=== PATIENT | female | born 1975 | race Caucasian/White ===

== ENCOUNTER 2017-06-02 19:37 | Inpatient (IN) | payer MEDICAID, OTHER ==
--- NOTE | 2017-06-02 20:36 | EDM.PDOC ---
ED HPI GENERAL MEDICAL PROBLEM - General Chief Complaint: Abdominal Pain Stated Complaint: MEDICAL Time Seen by Provider: 06/02/17 20:20 Source of Information: Reports: Patient, Old Records History Limitations: Reports: No Limitations - History of Present Illness INITIAL COMMENTS - FREE TEXT/NARRATIVE: 42 yo female from the [facility] was sent from there via EMS to be seen and admitted by Dr. Child for possible intussusception. Had Naida-N-Y gastric bypass by Dr. Child about 15 yrs ago. Began with abdominal pain about 0400h today. Pain has progressed. Some hematemesis. Has had a CT scan today. Onset: Today Onset Date: 06/02/17 Onset Time: 04:00 Duration: Hour(s):, Getting Worse Location: Reports: Abdomen Quality: Reports: Ache Severity: Moderate Improves with: Reports: None Worsens with: Reports: Other (time) Context: Reports: Other (Hx of gastric bypass) Associated Symptoms: Reports: Loss of Appetite, Nausea/Vomiting. Denies: Fever/ Chills Treatments STAND UP FORKLIFT OPERATOR: Reports: IV/IO, Other Medication(s) (narcotics) Right Upper Abdomen Pain Score (Numeric/FACES): 4 - Related Data Allergies Allergy/AdvReac Type Severity Reaction Status Date / Time prochlorperazine Allergy Agitation Verified 06/02/17 19:38 [From Compazine] Past Medical History REHAB THERAPY MANAGER History: Reports: Other (See Below) Other OB/BYN History: chronic infertility Musculoskeletal History: Reports: RA - Past Surgical History GI Surgical History: Reports: Cholecystectomy, Colonoscopy, Hernia Repair/Other , Other (See Below) Other GI Surgeries/Procedures: gastric bypass 15-20 years ago Endocrine Surgical History: Reports: Other (See Below) Other Endocrine Surgeries/Procedures: adeniodectomy Social & Family History - Tobacco Use Smoking Status *Q: Never Smoker - Caffeine Use Caffeine Use: Reports: Coffee, Soda - Recreational Drug Use Recreational Drug Use: No ED ROS GENERAL - Review of Systems Review Of Systems: See Below Constitutional: Reports: Decreased Appetite HEENT: Reports: No Symptoms Respiratory: Reports: No Symptoms Cardiovascular: Reports: No Symptoms Endocrine: Reports: No Symptoms GI/Abdominal: Reports: Abdominal Pain, Anorexia, Decreased Appetite, Hematemesis , Nausea, Vomiting. Denies: Black Stool, Bloody Stool, Constipation, Diarrhea, Hematochezia, Melena : Reports: No Symptoms Musculoskeletal: Reports: No Symptoms Skin: Reports: No Symptoms Neurological: Reports: No Symptoms Psychiatric: Reports: No Symptoms ED EXAM, GI/ABD - Physical Exam Exam: See Below Exam Limited By: No Limitations General Appearance: Alert, WD/WN, No Apparent Distress Eyes: Bilateral: Normal Appearance Ears: Normal External Exam, Normal Canal, Hearing Grossly Normal Nose: Normal Inspection, Normal Mucosa, No Blood Throat/Mouth: Normal Inspection, Normal Lips, Normal Teeth Head: Atraumatic, Normocephalic Neck: Normal Inspection, Supple Respiratory/Chest: No Respiratory Distress, Lungs Clear, Normal Breath Sounds, No Accessory Muscle Use Cardiovascular: Regular Rate, Rhythm, No Edema GI/Abdominal Exam: Distended (mildly distended.), Tender (mild), Abnormal Bowel Sounds (decreased) Back Exam: Normal Inspection. No: CVA Tenderness (R), CVA Tenderness (L) Extremities: Normal Inspection, Normal Range of Motion, No Pedal Edema Neurological: Alert, Oriented, CN II-XII Intact, Normal Cognition, No Motor/ Sensory Deficits Psychiatric: Normal Affect, Normal Mood Skin Exam: Warm, Dry, Intact, No Rash Lymphatic: No Adenopathy Course - Vital Signs Text/Narrative:: Dr. Child called and notified of patient's status @ Last Recorded V/S: Last Vital Signs Temp 37.3 C 06/02/17 19:41 Pulse 100 06/02/17 19:41 Resp 16 06/02/17 19:41 BP 142/96 H 06/02/17 19:41 Pulse Ox 98 06/02/17 19:41 Departure - Departure Time of Disposition: 20:39 Disposition: Admitted As Inpatient 66 Condition: Fair Clinical Impression: Intussusception - Discharge Information Referrals: Ross Child MD [Primary Care Provider] -
[2017-06-02] MEDS ORDERED: Ondansetron 4 MG/2 ML SDV IVPUSH ONE (20:40)
[2017-06-02] MEDS ORDERED: Lactated Ringers 1,000 ML IV SCH (20:45)
[2017-06-02] MEDS ORDERED: Naloxone 0.4 MG/ML SDV IVPUSH PRN (21:53)
[2017-06-02] MEDS: LORazepam 2 MG/ML MDV IVPUSH PRN (22:32)
[2017-06-02] MEDS: fentaNYL/Normal Saline 600 MCG/30 ML PCA Vial IV PRN (22:33)
[2017-06-02] MEDS ORDERED: Acetaminophen 1,000 MG in Premix Bag 1 BAG IV ONE (23:00)
[2017-06-02] MEDS: Dextrose 5%-Lactated Ringers 1,000 ML IV SCH (23:29)
[2017-06-03] MEDS: LORazepam 2 MG/ML MDV IVPUSH PRN ×2 (02:51→05:14)
[2017-06-03] MEDS: Dextrose 5%-Lactated Ringers 1,000 ML IV SCH ×3 (05:18→21:31)
[2017-06-03] MEDS ORDERED: cefOXitin 2 GM in Sodium Chloride 0.9% 50 ML IV ONE (06:47)
[2017-06-03] MEDS ORDERED: Bupivacaine 0.5%/EPINEPHrine 1:200,000 50 ML MDV ONE (07:03)
[2017-06-03] MEDS ORDERED: Rocuronium 50 MG/5 ML Vial ONE (07:14)
[2017-06-03] MEDS ORDERED: Glycopyrrolate 0.2 MG/ML 5 ML MDV ONE (07:14)
[2017-06-03] MEDS ORDERED: Dexamethasone 4 MG/ML SDV ONE (07:14)
[2017-06-03] MEDS ORDERED: Succinylcholine 200 MG/10 ML MDV ONE (07:14)
[2017-06-03] MEDS ORDERED: Propofol 200 MG/20 ML SDV ONE (07:14)
[2017-06-03] MEDS ORDERED: Neostigmine Methylsulfate 1 MG/ML 5 ML Syringe ONE (07:14)
[2017-06-03] MEDS ORDERED: Ondansetron 4 MG/2 ML SDV ONE (07:14)
[2017-06-03] MEDS ORDERED: FENTANYL PATCH ASK TOP SCH (08:00)
[2017-06-03] MEDS ORDERED: Meropenem 500 MG SDV IRR ONE (08:32)
[2017-06-03] MEDS ORDERED: fentaNYL 25 MCG/HR Transdermal Patch TRDERM SCH (09:00)
[2017-06-03] MEDS ORDERED: Cyanocobalamin (Vitamin B12) 1,000 MCG/ML SDV IM ONE (09:00)
[2017-06-03] MEDS ORDERED: Naloxone 0.4 MG/ML SDV IV PRN (09:23)
[2017-06-03] MEDS ORDERED: Scopolamine 1.5 MG Transdermal Patch TOP SCH (09:30)
[2017-06-03] MEDS ORDERED: hydrOXYzine HCl 100 MG/2 ML SDV IM ONE (09:45)
[2017-06-03] MEDS ORDERED: Metoclopramide 10 MG/2 ML SDV IVPUSH PRN (11:00)
[2017-06-03] MEDS ORDERED: hydrOXYzine HCl 100 MG/2 ML SDV IM PRN (11:00)
[2017-06-03] MEDS ORDERED: Labetalol 20 MG/4 ML Syringe IVPUSH PRN (11:00)
[2017-06-03] MEDS ORDERED: diphenhydrAMINE 50 MG/ML SDV IVPUSH PRN (11:00)
[2017-06-03] MEDS: VERIFY SCOPOLAMINE PATCH TOP SCH (11:09)
[2017-06-03] MEDS: VERIFY FENTANYL PATCH TOP SCH ×2 (11:09→20:29)
[2017-06-03] MEDS: Magnesium Sulfate/Water 2 GM in Premix Bag 1 BAG IV SCH ×3 (11:21→23:18)
[2017-06-03] MEDS: fentaNYL/Normal Saline 600 MCG/30 ML PCA Vial IV PRN (13:33)
[2017-06-03] MEDS: Cyclobenzaprine 10 MG Tab PO PRN ×2 (13:44→20:44)
[2017-06-03] MEDS: cefOXitin 2 GM in Sodium Chloride 0.9% 50 ML IV SCH ×2 (13:46→20:02)
[2017-06-03] MEDS: HYDROmorphone/Normal Saline 15 MG/30 ML PCA IV PRN (14:48)
[2017-06-03] MEDS: Ondansetron 4 MG/2 ML SDV IVPUSH PRN (14:56)
[2017-06-03] MEDS: Potassium Chloride 20 MEQ, Lidocaine 1% 2 ML in Sodium Chloride 0.9% 100 ML IV SCH ×3 (14:57→19:40)
[2017-06-03] MEDS: Pantoprazole 40 MG Vial IVPUSH SCH (15:00)
[2017-06-03] MEDS: MVI, Adult with Vitamin K 10 ML, Thiamine 200 MG, Chromium/Copper/Mang/Selen/Zn 1 ML in... IV SCH ×4 (16:33)
[2017-06-03] MEDS: Heparin Sodium 5,000 Units/ML Vial SUBCUT SCH (18:21)
[2017-06-04] MEDS ORDERED: Iohexol 647 MG/ML 50 ML SDV PO SCH (01:00)
[2017-06-04] MEDS: cefOXitin 2 GM in Sodium Chloride 0.9% 50 ML IV SCH (01:16)
[2017-06-04] MEDS ORDERED: LORazepam 2 MG/ML MDV IVPUSH PRN ×2 (01:25→07:06)
[2017-06-04] MEDS: Cyclobenzaprine 10 MG Tab PO PRN ×2 (04:34→22:07)
[2017-06-04] MEDS: Magnesium Sulfate/Water 2 GM in Premix Bag 1 BAG IV SCH ×4 (04:37→22:15)
[2017-06-04] MEDS: Heparin Sodium 5,000 Units/ML Vial SUBCUT SCH ×2 (05:34→17:44)
[2017-06-04] MEDS: Dextrose 5%-Lactated Ringers 1,000 ML IV SCH (07:33)
[2017-06-04] MEDS ORDERED: Zolpidem 5 MG Tab PO PRN (07:58)
[2017-06-04] MEDS: VERIFY FENTANYL PATCH TOP SCH ×2 (08:07→22:20)
[2017-06-04] MEDS: VERIFY SCOPOLAMINE PATCH TOP SCH (08:08)
[2017-06-04] MEDS ORDERED: Cyanocobalamin (Vitamin B12) 1,000 MCG/ML SDV IM ONE (09:00)
[2017-06-04] MEDS: HYDROmorphone/Normal Saline 15 MG/30 ML PCA IV PRN (09:06)
--- NOTE | 2017-06-04 09:21 | CR ---
UGI wo KUB HISTORY: eval RY GBP FINDINGS: Limited upper GI series was obtained without fluoroscopy. Water-soluble contrast was admini stered orally. Immediate along with 15 minute delayed images were obtained. Small gastric pouch is de monstrated. Contrast passes readily through the gastrojejunostomy into loops of jejunum. No obstructi on is identified. There is no contrast extravasation. Midline skin rocco are noted. There are stabl e lines lower left abdomen. IMPRESSION: No postoperative complication identified status post Naida-en-Y gastric bypass.
--- NOTE | 2017-06-04 09:44 | PN ---
DATE OF SERVICE: 06/04/2017 SUBJECTIVE: Samina is postop day 1. Her pain has been controlled with the exception of muscle spasms. She is on Flexeril and that is helping somewhat. Upper GI this morning was normal. OBJECTIVE: VITAL SIGNS: Temp max was 100.4. Vital signs otherwise have been stable. Her last vital signs check on TPR were 100.4, 97, 16. Blood pressure 124/77. HEENT: Negative. NECK: Supple. HEART: Regular rate and rhythm. LUNGS: Clear. ABDOMEN: Dressings dry and intact. INOCENCIO drain has put out 20 mL of a light pink serous drainage. Hawkins catheter is draining a clear candy urine. In past 24 hours, she has had 1850 mL out. EXTREMITIES: Without peripheral edema. SCDs are on. ASSESSMENT: 1. Laparoscopic turned to open laparotomy for:. a. Small bowel resection. b. Separate jejunostomy to reestablished Naida-en-Y small bowel anatomy. c. Small bowel strictureplasty. d. Repair of internal hernia with mesh. e. Placement of Interceed mesh for a segment of small bowel with hemorrhagic necrosis secondary to adhesions, jejunostomy, intussusception, stricture at the jejunostomy secondary to biliary-pancreatic limb abnormality and incisional hernia, date of surgery is 06/03/2017. PLAN: 1. Discontinue Hawkins catheter. 2. Discontinue telemetry. 3. Decrease IV rate to 100 mL/hr. 4. Step 3 gastric bypass diet. 5. Remove dressing. 6. May shower. 7. To restart home medications of Ambien 10 mg p.o. at bedtime p.r.n. 8. Good pulmonary toilet encouraged. 9. Reevaluate p.r.n. or in a.m. Bea Noble PA-C /[id number]
[2017-06-04] MEDS: Pantoprazole 40 MG Vial IVPUSH SCH (15:47)
[2017-06-04] MEDS: MVI, Adult with Vitamin K 10 ML, Thiamine 200 MG, Chromium/Copper/Mang/Selen/Zn 1 ML in... IV SCH ×4 (15:47)
[2017-06-04] MEDS: Ondansetron 4 MG/2 ML SDV IVPUSH PRN (22:12)
[2017-06-05] MEDS: Dextrose 5%-Lactated Ringers 1,000 ML IV SCH (01:53)
[2017-06-05] MEDS: Magnesium Sulfate/Water 2 GM in Premix Bag 1 BAG IV SCH (04:41)
[2017-06-05] MEDS: Heparin Sodium 5,000 Units/ML Vial SUBCUT SCH ×2 (05:36→18:09)
[2017-06-05] MEDS: HYDROmorphone/Normal Saline 15 MG/30 ML PCA IV PRN (05:59)
[2017-06-05] MEDS: Ondansetron 4 MG/2 ML SDV IVPUSH PRN (07:54)
[2017-06-05] MEDS ORDERED: Magnesium Hydroxide 400 MG/5 ML Susp 30 ML Cup PO ONE (08:00)
[2017-06-05] MEDS: HYDROmorphone 2 MG Tab PO PRN ×4 (09:12→22:14)
[2017-06-05] MEDS: Acetaminophen 325 MG Tab PO PRN ×4 (09:12→22:13)
[2017-06-05] MEDS: VERIFY FENTANYL PATCH TOP SCH ×2 (11:42→20:36)
[2017-06-05] MEDS: VERIFY SCOPOLAMINE PATCH TOP SCH (11:42)
[2017-06-05] MEDS: Ondansetron 4 MG Tab.DIS PO PRN ×2 (12:54→21:37)
[2017-06-05] MEDS: Pantoprazole 40 MG Tab.CR PO SCH (14:00)
[2017-06-06] MEDS: Ondansetron 4 MG Tab.DIS PO PRN ×2 (01:49→06:50)
[2017-06-06] MEDS: HYDROmorphone 2 MG Tab PO PRN ×2 (02:22→07:31)
[2017-06-06] MEDS: Acetaminophen 325 MG Tab PO PRN ×2 (02:23→07:31)
[2017-06-06] MEDS: Heparin Sodium 5,000 Units/ML Vial SUBCUT SCH (05:22)
[2017-06-06] MEDS: Pantoprazole 40 MG Tab.CR PO SCH (06:50)
[2017-06-06 07:23] VITALS: BP 144/88
[2017-06-06] MEDS ORDERED: fentaNYL 25 MCG/HR Transdermal Patch TRDERM ONE (08:00)
--- NOTE | 2017-06-07 08:27 | PN ---
DATE OF SERVICE: 06/05/2017 SUBJECTIVE: Samina is postop day 2. The pain is better controlled over the past 24 hours. Flexeril is helping with muscle spasms, up and ambulating. Oral intake 2,080, urine output 1,850, INOCENCIO put out 10 mL of a light pink serosanguineous drainage. She is not passing any flatus and temp max of 99.6. REVIEW OF SYSTEMS: Remainder of review of systems is negative for any pertinent positives and negatives. OBJECTIVE: GENERAL: Samina Lorenz is a pleasant 42-year-old female. VITAL SIGNS: TPR is 99, 85, 16, blood pressure 151/84. HEENT: Negative. NECK: Supple. HEART: Regular rate and rhythm. LUNGS: Clear. ABDOMEN: Dressing dry and intact. INOCENCIO drain intact. Abdominal binder is on. EXTREMITIES: Without peripheral edema. ASSESSMENT: Laparoscopic turned to open laparotomy for: 1. Small-bowel resection. 2. Separate jejunostomy to re-establish Naida-en-Y. 3. Small bowel strictureplasty. 4. Repair of internal hernia with mesh. 5. Placement of Interceed mesh for a segment of small bowel with hemorrhagic necrosis, secondary to adhesions at the jejunostomy, intussusception, stricture at the jejunostomy secondary to biliary pancreatic limb abnormality and incisional hernia. Date of Surgery 06/03/2017. PLAN: 1. DC PARAPROFESSIONAL EDUCATION ASSISTANT and continuous pulse ox. 2. Dilaudid 2 mg take 1 to 2 q.4 hours p.r.n. pain. 3. Saline lock IV if oral intake adequate. 4. Zofran ODT 4 mg q.4 hours p.r.n. nausea. 5. Dressing off, may shower. 6. Good pulmonary toilet encouraged. 7. We will evaluate p.r.n. or in a.m. Bea Noble PA-C /[id number]
--- NOTE | 2017-06-07 11:39 | DISCH ---
FINAL DIAGNOSES: 1. Small bowel obstruction associated with segmental small bowel necrosis secondary to adhesions and/or jejunojejunostomy intussusception. 2. 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 3. Incisional hernia. 4. Gastric bypass status. OPERATIVE PROCEDURES: Diagnostic laparoscopy converted to open laparotomy with: 1. Small bowel resection. 2. Separate jejunojejunostomy to reestablish Naida-en-Y small bowel anatomy. 3. Small bowel stricturoplasty. 4. Repair of incisional hernia. 5. Placement of Interceed mesh to limit recurrent adhesion formation. These were all done on 06/03/2017. HOSPITAL COURSE: This is a 42-year-old status post Naida-en-Y gastric bypass in 2005, presented to the hospital in [place] with a picture of a small bowel obstruction. CT scan was suggestive of an intussusception and was transferred here. The patient was initially fairly comfortable, but became more uncomfortable due to abdominal discomfort, and was taken to the operating room early on 06/03/2017. At that time, she was noted to have an area of some hemorrhagic necrosis of a segment of small bowel. It was unclear as to the exact cause of the at that time. Once her abdomen was opened up laparoscopically, the bowel, apart from having some fresh blood on its surface over a segment of roughly 15 cm of the Naida limb, had no obvious pathology coming from that. The bowel may have been under an adhesion between the omentum and the left lateral abdominal wall or perhaps, prior to that, had a period of persistent intussusception. Thus, the degree of distention of the bowel led to the decision to proceed with an open laparotomy at this time with limited upper midline incision and that segment of bowel resected. The patient was noted to have a stricture in the more proximal Naida limb, likely related to an adhesion that had been over that area. This was repaired by means of stricturoplasty to limit recurrent intussusception at the jejunojejunostomy. The Naida limb was divided just proximal to the jejunojejunostomy and then reconstructed to the bowel that, at that point, had become somewhat longer biliopancreatic limb, going into the common limb by means of a [id number] enteroenterostomy roughly 20 cm distal to the original anastomosis. The patient also had an incisional hernia through one of the trocar sites, which was repaired concurrently. This contained some incarcerated omentum within it. To limit recurrent adhesion formation, an Interceed mesh was placed underneath the incision and down toward the pelvis to displace the small bowel from the pelvic and abdominal wall. Postoperatively, the patient had no significant problems. She was noted to have some low magnesium at the time of admission, which was replaced. She is presently tolerating a step- 4 gastric bypass diet. Plan will be to proceed with discharge home today. Prescription was written for Dilaudid 2 to 4 mg q.4 hours p.r.n. pain, #50, as well as Tylenol p.r.n. She will have a new fentanyl patch 25 mcg per hour placed today to be removed in 4 days. FOLLOWUP: With Bea Noble, [facility] in [place], on 06/15/2017.
--- NOTE | 2017-06-15 11:54 | OR ---
DATE OF PROCEDURE: 06/03/2017 PREOPERATIVE DIAGNOSIS: Small bowel obstruction. POSTOPERATIVE DIAGNOSES: 1. Small bowel obstruction associated with segment of small bowel with hemorrhagic necrosis secondary to adhesions and/or jejunojejunostomy intussusception. 2. 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 3. Incarcerated incisional hernia. OPERATIVE PROCEDURES: Diagnostic laparoscopy converted to open laparotomy with: 1. Small bowel resection (01616). 2. Separate small bowel jejunojejunostomy to reestablish Naida-en-Y small bowel anatomy (20604). 3. Small bowel stricturoplasty (26544). 4. Repair of incarcerated incisional hernia (39540). 5. Placement of Interceed mesh to displace pelvic and abdominal wall from underlying small bowel to limit recurrent adhesion formation (76695). ANESTHESIA: General. HUMAN RESOURCE ASSISTANT: Bea Noble PA-C, and XUAN Carpenter. INDICATION FOR PROCEDURE: This is a 42-year-old woman, several years status post Naida-en-Y gastric bypass, who is presenting with a picture of a small bowel obstruction. A CT scan was obtained in [place], which showed a picture suggestive of intussusception at the jejunojejunostomy. Plan is to proceed with a laparoscopy, possible laparotomy with probable resection and/or reconstruction of the jejunojejunostomy. Potential risks of the procedure including bleeding, infection, leaks from various GI tract closures, problems with further bowel obstruction over time, injury to adjacent viscera, as well as the possibility of cardiopulmonary, septic, or hemorrhagic complications leading to were discussed, and the patient wishes to proceed. DETAILS OF PROCEDURE: The patient was taken to the operating room and after general endotracheal anesthesia was induced, she was placed in the lithotomy position. Hawkins catheter was inserted, and the abdomen was prepped and draped. In the left lower quadrant, a transverse incision was made and the peritoneal cavity entered under direct vision with an Optiview trocar and inflated to 15 mmHg pressure with CO2. Laparoscope was then reinserted. No underlying trocar insertion site injuries were seen. Following this, 5 mm trocars were placed in the right mid abdomen, as well as left mid abdomen, and general exploration was undertaken. It was notable that the patient had a segment of small bowel consisting of distal Naida limb of around 15 cm, which had inés hemorrhage on its subserosal surface. It appeared to be generally at least partially viable, but based on the findings, it was felt this needed to be resected. It was notable that this extended up almost to, but not entirely to the jejunojejunostomy. At present, there was no obvious intussusception. There was an adhesion between the previous left lateral subcostal trocar site and the omentum, so it was conceivable that the small bowel had been present in a loop-type bowel obstruction underneath that adhesion, which then became reduced upon insufflation of the abdomen with CO2 or the patient may have had intussusception of the Naida limb into that area, resulting in the above findings, which then subsequently spontaneously reduced as well. Nevertheless, this bowel was quite distended, and it was felt best to proceed with a limited open laparotomy to limit problems with GI tract spill and such. The trocars were removed, and the peritoneal cavity deflated. At that point, a midline incision from the umbilicus, roughly a handbreadth superior to that level was made and carried down through the full thickness of the abdominal wall and the peritoneal cavity entered. Upon inspection, no additional findings related to the area of the small hemorrhage were noted. The patient was noted to have a separate small bowel stricture related to longstanding adhesion in the common limb, roughly 40 cm distal to the present jejunojejunostomy, as well as an incisional hernia containing a tongue of omentum into a trocar site located in the left mid abdomen, likely used for the camera port at the time of the gastric bypass. Apart from that, there were some scattered adhesions between the omentum, small bowel, pelvic and abdominal richardson, which were taken down as well. At this point, the decision was made to resect the Naida limb where it became involved in hemorrhagic necrosis, as well as the adjacent jejunojejunostomy, given the significant likelihood that the whole process was related to intussusception at that anastomosis. The 3 components of the bowel, i.e. the Naida limb at the beginning of the area of hemorrhage, the common limb just beyond the jejunojejunostomy, and the biliopancreatic limb just proximal to the jejunojejunostomy, were all divided with CHARLIE meier loads and underlying mesentery then divided with mesenteric loads and that specimen then delivered from the field. At this point, the initial small bowel continuity was established with anastomosis between what had been the distal-most Naida limb to the proximal-most common limb with 2 internal firings of the CHARLIE meier loads, the common opening closed transversely with the same stapler, angles anastomosed, and the mesenteric defect approximated with some 3-0 Vicryl stitch. Roughly 20 cm distal to that then, the small bowel continuity was reestablished with a side- to-side anastomosis between the small bowel at that level and the remaining end of the biliopancreatic limb with internal firing of the EndoGIA meier load and the common opening closed transversely with the purple load as well. Likewise, the angles were anastomosed, and the mesenteric defect was approximated with some 3-0 Vicryl stitch as well. The patient was noted to have the above-noted stricture at that level. The bowel was flipped over on itself and enterotomy made at the site of the stricture and 2 internal firings of the meier load between the loops of bowel as they lay against each other was made. The common opening was then closed transversely with the purple load with the initial 2 firings being with meier loads, the angles anastomosed, and this anastomosis was reinforced with some 3-0 Vicryl stitch. There was no mesenteric defect to close in this case. The patient was noted to have the incarcerated incisional hernia. This was reduced with coiling out of the omentum present within the hernia. This was then closed from within with a [id number] stitch of #2 Vicryl stitch. At that point, the abdomen was irrigated with meropenem-containing saline solution. No significant further problems were noted. To limit recurrent adhesion formation, Interceed mesh was placed along the pelvic and abdominal richardson and up underneath the incision, thus displacing the omentum and viscera away from those surfaces. The midline fascia was then approximated with a #2 Vicryl stitch. The subcutaneous tissue was still fairly thick and felt to be at high likelihood of getting a seroma postoperatively. Given this, a 10-Swazi round Clint-Faulkner drain was placed through a stab wound inferior to the incision, and the incision then closed with some 3-0 and 4-0 Vicryl stitch deep at the subcutaneous level and rocco for the skin. Dressing was applied. The patient was taken to the recovery room in a satisfactory condition. Physician teacher's assistant, Bea Noble, played an essential role in assisting in this case, helping to position the patient, retract structures as needed, as well as suturing and stapling when indicated. Her presence improved patient safety and decreased the operative time. Ross Child MD /[id number]
== END 2017-06-06 08:15 | disposition home or self-care (01) | DRG 326 ==
LOC: JP.ED 19:37 → JP.2SS 20:41
PROVIDERS: ADMIT Surgery; ATTEND Surgery
PROC: 0WUF0JZ Supplement Abdominal Wall with Synthetic Substitute, Open Approach (ICD-10-PCS; principal; 2017-06-03)
PROC: 3E0M05Z Introduction of Adhesion Barrier into Peritoneal Cavity, Open Approach (ICD-10-PCS; principal; 2017-06-03)
PROC: 0D160ZA Bypass Stomach to Jejunum, Open Approach (ICD-10-PCS; principal; 2017-06-03)
PROC: 0DB80ZZ Excision of Small Intestine, Open Approach (ICD-10-PCS; principal; 2017-06-03)
PROC: 0D9A00Z Drainage of Jejunum with Drainage Device, Open Approach (ICD-10-PCS; principal; 2017-06-03)
DX: K56.1 Intussusception (principal); K55.029 Acute infarction of small intestine, extent unspecified; K43.0 Incisional hernia with obstruction, without gangrene; Z53.31 Laparoscopic surgical procedure converted to open procedure; Z98.84 Bariatric surgery status; Z98.0 Intestinal bypass and anastomosis status; E83.42 Hypomagnesemia; M06.9 Rheumatoid arthritis, unspecified; N97.9 Female infertility, unspecified; Z88.8 Allergy status to other drugs, medicaments and biological substances
CPT/HCPCS: 36415; 74240; 74240-26; 80053; 82607; 82728; 83735; 84100; 85027; 87070; 87075; 87077; 87205; 88302; 88305; 88307; 94762; 96361; 96374; 99285-25; A9270-GY; C9113; J0131; J0330; J0694; J1100; J1170; J1200; J1644; J2060; J2185; J2405; J2704; J2710; J3010; J3410; J3411; J3420; J3475; J3480; J7030; J7042; J7050; J7120; Q9967